=== PATIENT | female | born 1980 | race Caucasian/White ===

== ENCOUNTER 2018-03-16 03:07 | Emergency (ER) | payer OTHER ==
[~2018-03-16] VITALS: Ht 167.6 cm; Wt 128.9 kg
[2018-03-16 03:14] VITALS: BP 113/73; Ht 167.6 cm; Wt 128.9 kg
== END 2018-03-16 04:19 | disposition left against medical advice (07) ==
LOC: ED 03:07
DX: Z53.21 Procedure and treatment not carried out due to patient leaving prior to being seen by health care provider (principal)

== ENCOUNTER 2019-04-09 01:26 | Emergency (ER) | payer OTHER ==
[~2019-04-09] VITALS: Ht 170.2 cm; Wt 123.4 kg
[2019-04-09 01:38] VITALS: Ht 170.2 cm; Wt 123.4 kg
[2019-04-09 02:20] VITALS: BP 129/78
== END 2019-04-09 02:20 | disposition home or self-care (01) ==
LOC: ED 01:26
DX: L25.9 Unspecified contact dermatitis, unspecified cause (principal); E11.9 Type 2 diabetes mellitus without complications; Z91.040 Latex allergy status
CPT/HCPCS: 82962

== ENCOUNTER 2020-10-27 19:13 | Emergency (ER) | payer OTHER ==
[~2020-10-27] VITALS: Ht 170.2 cm; Wt 82.1 kg
[2020-10-27 19:20] VITALS: Ht 170.2 cm; Wt 82.1 kg
[2020-10-27 20:48] VITALS: BP 127/82
== END 2020-10-27 20:48 | disposition home or self-care (01) ==
LOC: ED 19:13
DX: S30.854A Superficial foreign body of vagina and vulva, initial encounter (principal); E11.9 Type 2 diabetes mellitus without complications; Z91.040 Latex allergy status; W45.8XXA Other foreign body or object entering through skin, initial encounter; Y93.89 Activity, other specified; Y92.89 Other specified places as the place of occurrence of the external cause; Y99.8 Other external cause status

== ENCOUNTER 2020-12-04 08:23 | Emergency (ER) | payer OTHER ==
[~2020-12-04] VITALS: Ht 170.2 cm; Wt 85.3 kg
[2020-12-04 08:59] VITALS: BP 127/75; Ht 170.2 cm; Wt 85.3 kg
== END 2020-12-04 10:43 | disposition home or self-care (01) ==
LOC: ED 08:23
DX: S62.109D Fracture of unspecified carpal bone, unspecified wrist, subsequent encounter for fracture with routine healing (principal); E11.9 Type 2 diabetes mellitus without complications; Z91.040 Latex allergy status; X58.XXXD Exposure to other specified factors, subsequent encounter
CPT/HCPCS: 82962